=== PATIENT | male | born 1980 | race Caucasian/White ===

== ENCOUNTER 2024-10-08 15:12 | Emergency (ER) | payer OTHER, SELFPAY ==
[2024-10-08 15:25] VITALS: BP 140/89
[2024-10-08 15:50] LABS: % Basophils 0.6 % (0-2); % Eosinophils 1.7 % (0-6); % Immature Granulocytes 1.9 % (0-0.5); % Lymphocytes 14.4 % (20.5-51.1); % Neutrophils 73.4 % (42.2-75.2); Absolute Basophils 0.1 10^3/uL (0-0.2); Absolute Eosinophils 0.2 10^3/uL (0-0.7); Absolute Immature Granulocytes 0.2 10^3/uL (0-0.05); Absolute Lymphocytes 1.3 10^3/uL (1.2-3.4); Absolute Monocytes 0.7 10^3/uL (0.1-0.6); Absolute Neutrophils 6.8 10^3/uL (1.4-6.5); Hematocrit 45.3 % (39.0-52.0); Hemoglobin 15.4 g/dL (13.0-18.0); Mean Corpuscular Hgb 29.3 pg (27.0-31.0); Mean Corpuscular Volume 86.1 fL (80.0-94.0); Mean Platelet Volume 10.6 fL (7.4-10.4); Nucleated Red Blood Cells % 0 % (-); Platelet Count 255 10^3/uL (130-400); Red Blood Cell Count 5.26 10^6/uL (4.70-6.10); Red Cell Dist. Width 12.7 % (11.5-14.5); White Blood Cell Count 9.3 10^3/uL (4.8-10.8)
[2024-10-08 15:51] LABS: Urine Albumin Negative (Neg - Trace); Urine Bilirubin Negative (Negative); Urine Character Clear (Clear); Urine Color Straw; Urine Glucose Negative (Negative); Urine Ketone Negative (Negative); Urine Leukocyte Negative (Negative); Urine Nitrite Negative (Negative); Urine Occult Blood Negative (Negative); Urine Urobilinogen Negative (Neg - 1+)
[2024-10-08 16:01] LABS: ALT (SGPT) 80 U/L (0-50); AST (SGOT) 72 U/L (17-59); Albumin 4.7 g/dl (3.5-5.0); Alkaline Phosphatase 103 U/L (38-126); Blood Urea Nitrogen 18 mg/dl (9-20); Calcium 10.1 mg/dl (8.4-10.2); Carbon Dioxide 28 mmol/L (22-30); Chloride 99 mmol/L (98-107); Glucose 94 mg/dl (70-99); Sodium 137 mmol/L (135-145); Total Bilirubin 0.5 mg/dl (0.2-1.3); Total Protein 7.4 g/dl (6.3-8.2); eGFR > 60.00
--- NOTE | 2024-10-08 19:07 | ED.GENMED ---
History of Present Illness
General
Chief Complaint: Abdominal Pain
Source: patient
Exam Limitations: none
Time Seen by Provider: 10/08/24 18:39
History of Present Illness
History of Present Illness:
This is a 44 year old male that comes in with c/o abd discomfort. States that this morning he felt like he had abd discomfort and bloating. States that he did his work out and he was OK. Denies anything new. Sates that after this he tried to hydrate
and he then had frequent urination and had 2 BM's that were normal. Yesterday he did have a little discomfort and the end of urination. States that he has pressure in the lower abd that goes all across. States that he feels like he has to have a BM
but then he doesn't go. States that he went to see the PCP and when he was palpating the pain spiked and he sent patient in for CT scan. Denies any fever, chills, chest pain, SOB, nausea, vomiting, diarrhea, headache, dizziness, urinary burning.
Past History
Past History
ED Past Medical History: Other (Migraines, ); Negative Asthma, HTN, Hypercholesterolemia or NIDDM
ED Past Surgical History: Appendectomy and Other (Cyst removed right shoulder, )
Social History
Tobacco: Non-smoker
Alcohol: None
Personal:
Living: with family
Employment: Employed
Review of Systems
Review of Systems
All Other Systems: ROS reviewed and negative except as documented in HPI and ROS
Constitutional: Reports no symptoms; Denies fever or chills
EENT: Reports no symptoms
Respiratory: Reports no symptoms; Denies cough or trouble breathing
Cardiac: Reports no symptoms; Denies chest pain
ABD/GI: Reports abdominal pain; Denies nausea, vomiting or diarrhea
: Reports no symptoms; Denies dysuria, frequency or urgency
Musculoskeletal: Reports no symptoms
Skin: Reports no symptoms
Neurological: Reports no symptoms; Denies dizzy or headache
Psychiatric: Reports no symptoms
Phy Exam
General Physical Exam
General Presentation: well appearing and no apparent distress
General age: appears stated age
General Skin: warm and dry
General Habitus: normal
General Mental: alert
General Hydration: appears well hydrated
ENT Exam
ENT Exam: TM's normal, pharynx normal and neck supple
Eye Exam
Eye Exam: EOMI
Cardiovascular Exam
Cardiovascular Exam: regular rate/rhythm, no edema, no murmur and normal peripheral pulses
Pulmonary Exam
Pulmonary Exam: lungs clear, no respiratory distress, no rales, chest non tender, no crackles, no rhonchi, no wheezing and no cough
Gastrointestinal Exam
Gastrointestinal Exam: soft, no organomegaly, no pulsatile mass, non distended, tender (Generalized tenderness with palpation) and other (Hypoactive bowel sounds)
Musculoskeletal Exam
Musculoskeletal Exam: full ROM and no edema
Skin Exam
Skin Exam: normal color, warm/dry, no rash and no petechia
Psychiatric Exam
Psychiatric Exam: normal mood/affect
Course
Orders/Labs/Results
Orders:
Orders
10/08/24 15:41
Complete Blood Count/With Diff Urgent
Comprehensive Metabolic Panel Urgent
Lipase Urgent
Comment: ADDON
Urinalysis Reflex To Culture Urgent
Date Specimen was Collected: 10/08/24
Time Specimen was Collected: 15:28
10/08/24 17:56
CT Abd/pel Without Iv Or Oral Urgent
Comment:
Reason For Exam: flank pain, bloodin urine as outpt
10/08/24 18:41
Add On- LAB Urgent
Tests Added?: Lipase
Abnormal Lab Results
10/08/24
15:41
MPV 10.6 H fL
(7.4-10.4)
Abs Immat Gran (auto) 0.2 H 10^3/uL
(0-0.05)
Absolute Neuts (auto) 6.8 H 10^3/uL
(1.4-6.5)
Absolute Monos (auto) 0.7 H 10^3/uL
(0.1-0.6)
Immature Gran % 1.9 H %
(0-0.5)
Lymphocytes % 14.4 L %
(20.5-51.1)
AST 72 H U/L
(17-59)
ALT 80 H U/L
(0-50)
10/08/24 15:41
10/08/24 15:41
AST/ALT elevation. Urine negative for infection.
Vital Signs
Initial and Last Documented VS:
Initial Vital Signs
Temp Pulse Resp BP Pulse Ox
97.9 F 86 18 140/89 99
10/08/24 15:25 10/08/24 15:25 10/08/24 15:25 10/08/24 15:25 10/08/24 15:25
Last Documented Vital Signs
Temp Pulse Resp BP Pulse Ox
97.9 F 86 18 140/89 99
10/08/24 15:25 10/08/24 15:25 10/08/24 15:25 10/08/24 15:25 10/08/24 15:25
MDM/Problems Addressed
Differential Diagnosis Includes:
Diverticulitis, UTI, Gastritis
MDM/Problems Addressed:
This is a 44 year old male taht comes in with c/o generalized abd discomfort. States that he feels like he is bloated and is uncomfortable.
Will check labs, Urine and get CT scan.
Back into see patient. Explained that his CT shows Diverticulosis but no other acute disease. Will have patient watch his alcohol intake and diet and have him follow up with the family doctor to recheck his liver enzymes. Patient to return with
increased pain, or any other concerns.
Chronic conditions affecting care:
NA
Acute Exacerbation and/or Progression of Chronic Illness:
NA
*Radiology
Radiology exam reviewed: radiology read reviewed (CT-NO acute findings in the abdomen or pelvis, specifically no evidence of renal or ureteral calculus. Mild scattered colonic diverticulosis. )
*Pulse Oximetry
Patient hypoxic: no
*EKG
Interpreted by ED Provider?: NA
Rate: EKG- N/A
*Clock And Watch Hands Dipper Interpretation
Rate: Clock And Watch Hands Dipper- N/A
*Critical Care Note
Total Time (30-74mins, 75-104mins- exclusive of procedures): Not Applicable
ED Attending Note
-
Portions of this chart may have been created with voice recognition software.� Occasional wrong word or��sound alike� substitutions may have occurred due to the inherent limitations of voice recognition software.
Discharge Plan
Departure
Patient Disposition: Home (Routine Discharge)
Date of Disposition: 10/08/24
Time of Disposition: 20:20
Patient with high blood pressure during this ER visit?: Yes
Condition: Good
Covid-19: Not Applicable
Discharge Problem:
Abdominal pain
Instructions: Abdominal Pain, BLOOD PRESSURE
Prescriptions:
No Action
cetirizine [Zyrtec] 10 mg Tablet
10 mg PO DAILY
fluticasone propionate [Flonase] 50 mcg/actuation [place],Suspension
2 spray INTRANASAL DAILY
Referrals:
Sugey Mckeon CRNP [Family Provider] - Call in 1-3 days for appt
Activity Restrictions/Additional Instructions:
As discussed, your blood work shows that your liver enzyme are elevated. Please watch your alcohol intake. This can also be due to a viral illness. Your CT is negative for any acute process. There is Diverticulosis but this is not treated with
antibiotics. Please increase your water intake to 8-8oz glasses daily. You may also use Ibuprofen 400mg every 6 hours with food as needed for any discomfort. Follow up with the family doctor for recheck. IF YOU HAVE INCREASED OR CHANGING PAIN, OR
YOU HAVE ANY OTHER CONCERNS PLEASE RETURN TO THE EMERGENCY ROOM.
Interventions
Interventions:
*Risk Screen - Suicide Last Done: 10/08/24 15:25
Discharge Date and Time
Print Language: MAURITANIAN
[2024-10-08 19:12] LABS: Lipase 95 U/L (23-300)
[2024-10-08 20:24] VITALS: BP 141/92
== END 2024-10-08 20:32 | disposition home or self-care (01) ==
LOC: EMR 15:12
PROVIDERS: Emergency Medicine; EMERGENCY PHYSICIAN Emergency Medicine; FAMILY PHYSICIAN Nurse Practitioner Adult Health
DX: R10.9 Unspecified abdominal pain (principal); I10 Essential (primary) hypertension
CPT/HCPCS: 99284; 74176; 80053; 81003; 83690; 85025